=== PATIENT | male | born 1985 | race Caucasian/White ===

== ENCOUNTER → 2021-10-21 15:20 | Outpatient (CLI) | payer BC, SELFPAY ==
--- NOTE | ~2021-10-21 | US_ITS ---
EXAMINATION: US scrotum doppler DATE: 10/21/2021 15:52 INDICATION: Left testicular pain TECHNIQUE: Testicular sonogram utilizing grayscale and Doppler COMPARISON: None. FINDINGS: The right testis measures 4.2 x 2.3 x 3.2 cm. The left testis measures 4.2 x 2.4 x 3.1 cm. Symmetric normal grayscale appearance to both testes. There is normal vascular flow to both testes. There are c ouple 2-3 mm anechoic epididymal cysts at the head of the right epididymis. The right epididymis is o therwise normal with normal vascular flow. The left epididymis is normal with normal vascular flow. M inimal bilateral hydroceles. There is no varicocele. IMPRESSION: 1. Minimal bilateral hydroceles and a couple 2-3 mm right epididymal head cyst. Otherwise unremarkab le scrotal ultrasound. Reviewed, dictated and finalized at location B. IMPRESSION: 1. Minimal bilateral hydroceles and a couple 2-3 mm right epididymal head cyst . Otherwise unremarkable scrotal ultrasound.
== END ==
PROVIDERS: Visit Provider Physician Assistant Medical
DX: N50.812 Left testicular pain (principal); N43.3 Hydrocele, unspecified
CPT/HCPCS: 76870; 93976

== ENCOUNTER → 2021-12-13 14:50 | Outpatient (CLI) | payer BC, SELFPAY ==
--- NOTE | ~2021-12-13 | CT_ITS ---
EXAMINATION: CT abdomen pelvis wo con DATE: 12/13/2021 15:06 INDICATION: Pelvic pain. Urinary frequency. TECHNIQUE: Computed tomography (CT) of the abdomen and pelvis was performed without intravenous contr ast. The dose-length product was 727.68 mGy-cm. Automated exposure control and iterative reconstructi on technique were employed. COMPARISON: None. FINDINGS: Lung bases are unremarkable. Heart size normal. No significant pleural or pericardial effus ion. No significant vascular abnormality. No lymphadenopathy. There are calcified granulomas of the spleen. The liver, pancreas, adrenal glands and kidneys are unr emarkable. Nonobstructive bowel gas pattern. No free air or free fluid. Bladder is unremarkable. Gall bladder is contracted. There is a urachal remnant. IMPRESSION: 1. Urachal remnant, developmental variant. No focal bladder wall abnormalities are seen. Reviewed, dictated and finalized at location A.
== END ==
PROVIDERS: PCP Internal Medicine; Visit Provider Physician Assistant Medical
DX: R10.2 Pelvic and perineal pain (principal); R35.0 Frequency of micturition
CPT/HCPCS: 74176